=== PATIENT | female | born 1990 | race Caucasian/White ===

== ENCOUNTER 2022-09-09 00:33 | Emergency (ER) | payer MEDICAID, SELFPAY ==
[2022-09-09] MEDS ORDERED: Naloxone 2 MG/2 ML Syringe IVPUSH ONE (02:00)
[2022-09-09 06:55] VITALS: BP 101/68; PULSE 74
== END 2022-09-09 06:53 ==
LOC: JD.ED 00:33
DX: T50.911A Poisoning by multiple unspecified drugs, medicaments and biological substances, accidental (unintentional), initial encounter (principal); F19.10 Other psychoactive substance abuse, uncomplicated; Z72.0 Tobacco use
CPT/HCPCS: 36415; 71045; 80053; 80306; 80307; 85025; 93005; 96374; 99285; J2310

== ENCOUNTER 2022-09-20 02:18 | Emergency (ER) | payer MEDICAID ==
[2022-09-20 02:46] VITALS: PULSE 98
[2022-09-20 05:03] VITALS: BP 129/82
== END 2022-09-20 05:01 ==
LOC: JD.ED 02:18
DX: F19.20 Other psychoactive substance dependence, uncomplicated (principal); F10.10 Alcohol abuse, uncomplicated; Z72.0 Tobacco use
CPT/HCPCS: 99282; 99283